=== PATIENT | male | born 1995 | race African-American/Black ===

== ENCOUNTER 2019-12-04 19:07 | Emergency (ER) | payer BC, OTHER ==
[~2019-12-04] VITALS: Ht 185 cm; Wt 82.0 kg
[2019-12-04] MEDS ORDERED: KETOROLAC 30 MG/ML VIAL ONE (19:18)
[2019-12-04] MEDS ORDERED: ONDANSETRON 4 MG/2 ML (SDV) Z0FRAN ONE (19:18)
[2019-12-04] MEDS ORDERED: LACTATED RINGERS 1,000 ML IV ONE (19:18)
[2019-12-04 19:23] LABS: BASOPHILS # (AUTO) 0.1 10^3/uL (0.0-0.1); BASOPHILS % (AUTO) 1 % (0-10); EOSINOPHILS # (AUTO) 0.3 10^3/uL (0.0-0.3); EOSINOPHILS % (AUTO) 4 % (0-10); HEMATOCRIT 52 % (40-54); HEMOGLOBIN 17.6 G/DL (13.3-17.7); LYMPHOCYTES # (AUTO) 2.1 X 10^3 (1.0-4.0); LYMPHOCYTES % (AUTO) 29 % (12-44); MEAN CORPUSCULAR HEMOGLOBIN 30 PG (25-34); MEAN CORPUSCULAR HGB CONC 34 G/DL (32-36); MEAN CORPUSCULAR VOLUME 88 FL (80-99); MEAN PLATELET VOLUME 11.3 FL (7.4-10.4); MONOCYTES # (AUTO) 0.7 X 10^3 (0.0-1.0); MONOCYTES % (AUTO) 10 % (0-12); NEUTROPHILS % (AUTO) 56 % (42-75); PLATELET COUNT 222 10^3/uL (130-400); RED CELL DISTRIBUTION WIDTH 13.5 % (10.0-14.5); WHITE BLOOD COUNT 7.1 10^3/uL (4.3-11.0)
--- NOTE | 2019-12-04 19:26 | ED GI ---
General Stated Complaint: DEHYRDRATED Source of Information: Patient Exam Limitations: No Limitations History of Present Illness Date Seen by Provider: Dec 04, 2019 Time Seen by Provider: 19:05 Initial Comments Patient presents ER by private conveyance with chief complaint of feeling dehydrated nausea vomiting and tired. 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 He has not had any diarrhea but he's vomited a few times today. No fevers or chills. No cough shortness of breath. No history of medical problems. No significant family medical history. No allergies. He denies tobacco alcohol or drugs. Allergies and Home Medications Allergies Coded Allergies: No Known Drug Allergies (Unverified , 12/04/19) Patient Home Medication List Home Medication List Reviewed: Yes Review of Systems Review of Systems Constitutional: No chills, No diaphoresis, No fever, No malaise EENTM: No Blurred Vision, No Double Vision Respiratory: Denies Cough, Denies Shortness of Air Cardiovascular: Denies Chest Pain, Denies Lightheadedness Gastrointestinal: Abdominal Pain (occasional abdominal cramps); Denies Constipated, Denies Diarrhea; Nausea, Poor Fluid Intake, Vomiting Genitourinary: Denies Burning, Denies Discharge Musculoskeletal: No back pain, No joint pain Skin: No pruritus, No rash All Other Systems Reviewed Negative Unless Noted: Yes Past Kajydok-Kdasnv-Zxpzgs Hx Patient Social History Alcohol Use: Denies Use Recreational Drug Use: No Smoking Status: Never a Smoker Recent Foreign Travel: No Contact w/Someone Who Travel: No Physical Exam Vital Signs Vital Signs - First Documented 12/04/19 19:24 Temp 36.3 Pulse 99 Resp 16 B/P (MAP) 124/94 (104) Pulse Ox 98 O2 Delivery Room Air Capillary Refill : Height/Weight/BMI Height: '" Weight: lbs. oz. kg; BMI Method: General Appearance: WD/WN, mild distress (having some intermittent abdominal cramps) HEENT: PERRL/EOMI, pharynx normal Neck: non-tender, full range of motion, supple, normal inspection Respiratory: lungs clear, normal breath sounds, no respiratory distress, no accessory muscle use Cardiovascular: normal peripheral pulses, regular rate, rhythm, no edema Gastrointestinal: normal bowel sounds, non tender, soft Neurologic/Psychiatric: alert, normal mood/affect, oriented x 3 Skin: normal color, warm/dry Progress/Results/Core Measures Results/Orders Lab Results Laboratory Tests Test 12/04/19 19:17 Range/Units White Blood Count 7.1 4.3-11.0 10^3/uL Red Blood Count 5.86 H 4.35-5.85 10^6/uL Hemoglobin 17.6 13.3-17.7 G/DL Hematocrit 52 40-54 % Mean Corpuscular Volume 88 80-99 FL Mean Corpuscular Hemoglobin 30 25-34 PG Mean Corpuscular Hemoglobin Concent 34 32-36 G/DL Red Cell Distribution Width 13.5 10.0-14.5 % Platelet Count 222 130-400 10^3/uL Mean Platelet Volume 11.3 H 7.4-10.4 FL Neutrophils (%) (Auto) 56 42-75 % Lymphocytes (%) (Auto) 29 12-44 % Monocytes (%) (Auto) 10 0-12 % Eosinophils (%) (Auto) 4 0-10 % Basophils (%) (Auto) 1 0-10 % Neutrophils # (Auto) 4.0 1.8-7.8 X 10^3 Lymphocytes # (Auto) 2.1 1.0-4.0 X 10^3 Monocytes # (Auto) 0.7 0.0-1.0 X 10^3 Eosinophils # (Auto) 0.3 0.0-0.3 10^3/uL Basophils # (Auto) 0.1 0.0-0.1 10^3/uL Sodium Level 140 135-145 MMOL/L Potassium Level 3.7 3.6-5.0 MMOL/L Chloride Level 93 L 98-107 MMOL/L Carbon Dioxide Level 26 21-32 MMOL/L Anion Gap 21 H 5-14 MMOL/L Blood Urea Nitrogen 26 H 7-18 MG/DL Creatinine 2.94 H 0.60-1.30 MG/DL Estimat Glomerular Filtration Rate 32 BUN/Creatinine Ratio 9 Glucose Level 104 70-105 MG/DL Calcium Level 12.6 H 8.5-10.1 MG/DL Corrected Calcium 8.5-10.1 MG/DL Total Bilirubin 1.2 H 0.1-1.0 MG/DL Aspartate Amino Transf (AST/SGOT) 36 H 5-34 U/L Alanine Aminotransferase (ALT/SGPT) 27 0-55 U/L Alkaline Phosphatase 94 40-136 U/L Total Protein 11.0 H 6.4-8.2 GM/DL Albumin 6.2 H 3.2-4.5 GM/DL Lipase 34 8-78 U/L My Orders Orders - GIULIANA PASTOR Cbc With Automated Diff (12/04/19 19:19) Comprehensive Metabolic Panel (12/04/19 19:19) Lipase (12/04/19 19:19) Lactated Ringers (Lr 1000 Ml Iv Solution (12/04/19 19:30) Ketorolac Injection (Toradol Injection) (12/04/19 19:30) Ondansetron Injection (Zofran Injectio (12/04/19 19:30) Magnesium (12/04/19 19:26) Lactated Ringers (Lr 1000 Ml Iv Solution (12/04/19 20:00) Medications Given in ED Current Medications Medications Dose Ordered Sig/Homero Route Start Time Stop Time Status Last Admin Dose Admin Ketorolac Tromethamine 15 mg ONCE ONCE IVP 12/04/19 19:30 12/04/19 19:31 DC 12/04/19 19:30 15 MG Ondansetron HCl 4 mg ONCE ONCE IVP 12/04/19 19:30 12/04/19 19:31 DC 12/04/19 19:30 4 MG Vital Signs/I&O 12/04/19 19:24 Temp 36.3 Pulse 99 Resp 16 B/P (MAP) 124/94 (104) Pulse Ox 98 O2 Delivery Room Air Progress Progress Note #1: Time: 19:25 Progress Note Heat exhaustion with nausea and vomiting. Plan to give him a liter of lactated Ringer's check some labs including a magnesium. We'll give him some Zofran, Toradol for his pain 15 mg. Progress Note #2: Time: 19:53 Progress Note Patient is a mild acute kidney injury. Plan to give him a second liter fluids. He is tolerating by mouth fluids in his nausea is gone after the Zofran. 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 We'll give him some ondansetron. We'll give him return precautions. Patient's okay with this plan. Departure Impression Primary Impression: Heat exhaustion Qualified Codes: T67.5XXA - Heat exhaustion, unspecified, initial encounter Additional Impression: Acute renal injury due to hypovolemia Disposition: 01 HOME, SELF-CARE Condition: Improved Departure-Patient Inst. Decision time for Depature: 20:00 Referrals: NO,LOCAL PHYSICIAN (PCP/Family) Primary Care Physician Patient Instructions: Dehydration, Adult (DC), Acute Kidney Injury Add. Discharge Instructions: Continue to drink a lot of fluids over the next week. Sports drinks are recommended. Tylenol 650 mg every 6 hours as necessary for body aches. Avoid ibuprofen, naproxen, Aleve or other NSAIDs until cleared by your doctor. Plan to have a lab redraw by either your primary care doctor or urgent care in the next 2-4 weeks. 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 After that you need a day of light duty followed by return to full duty. Return to the ER if you're having worsening symptoms or cannot control your vomiting. Ondansetron one tablet under the tongue every 6 hours as necessary for nausea. Make sure you are eating some food even if you're not hungry in addition to drinking lots of fluids. 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 Restrictions: 12/07/19 may return to light duty. 12/08/19 may return to full duty. GIULIANA PASTOR Dec 04, 2019 19:26
[2019-12-04 19:30] LABS: ALBUMIN 6.2 GM/DL (3.2-4.5)
[2019-12-04] MEDS ORDERED: ONDANSETRON 4 MG/2 ML (SDV) Z0FRAN IVP ONE (19:30)
[2019-12-04] MEDS ORDERED: LACTATED RINGERS 1,000 ML IV SCH ×2 (19:30→20:00)
[2019-12-04] MEDS ORDERED: KETOROLAC 30 MG/ML VIAL IVP ONE (19:30)
[2019-12-04 19:31] LABS: CHLORIDE 93 MMOL/L (98-107); POTASSIUM 3.7 MMOL/L (3.6-5.0); SODIUM 140 MMOL/L (135-145)
[2019-12-04 19:32] LABS: CALCIUM 12.6 MG/DL (8.5-10.1)
[2019-12-04 19:33] LABS: GLUCOSE 104 MG/DL (70-105)
[2019-12-04 19:34] LABS: CARBON DIOXIDE 26 MMOL/L (21-32)
[2019-12-04 19:35] LABS: BILIRUBIN,TOTAL 1.2 MG/DL (0.1-1.0)
[2019-12-04 19:36] LABS: ALKALINE PHOSPHATASE 94 U/L (40-136)
[2019-12-04 19:37] LABS: CREATININE SERUM 2.94 MG/DL (0.60-1.30); GFR ESTIMATED 32
[2019-12-04 19:38] LABS: BUN/CREATININE RATIO 9
[2019-12-04 19:39] LABS: ALANINE AMINOTRANSFERASE 27 U/L (0-55)
[2019-12-04 19:40] LABS: LIPASE 34 U/L (8-78)
[2019-12-04] MEDS ORDERED: ONDA4TAB11 PO (19:56)
[2019-12-04 21:04] VITALS: BP 124/89
--- OUTSIDE RECORDS SUMMARY | 2019-12-04 22:14 | XMS REPORT | Continuity of Care Document ---
Author Organization Unknown Address Unknown Phone Unavailable Allergies Active Description Code Type Severity Reaction Onset Reported/Identified Relationship to Patient Clinical Status Yes No Known Drug Allergies [id number] Drug Allergy Unknown N/A 12/04/2019 Medications There is no data. Problems There is no data. Procedures There is no data. Results Test Result Range Complete blood count (CBC) with automate d white blood cell (WBC) differential - 12/04/19 19:17 Blood leukocytes automated count (number/volume) 7.1 10*3/uL 4.3-11.0 Blood erythrocytes automated count (number/volume) 5.86 10*6/uL 4.35-5.85 Venous blood hemoglobin measurement (mass/volume) 17.6 g/dL 13.3-17.7 Blood hematocrit (volume fraction) 52 % 40-54 Automated erythrocyte mean corpuscular volume 88 [ foz_us] 80-99 Automated erythrocyte mean corpuscular h emoglobin (mass per erythrocyte) 30 pg 25-34 Automated erythrocyte mean corpuscular h emoglobin concentration measurement (mass/volume) 34 g/dL 32-36 Automated erythrocyte distribution width ratio 13. 5 % 10.0- 14.5 Automated blood platelet count (count/volume) 222 10*3/uL 130-400 Automated blood platelet mean volume measurement 11.3 [foz_us] 7.4-10.4 Automated blood neutrophils/100 leukocytes 56 % 42-75 Automated blood lymphocytes/100 leukocytes 29 % 12-44 Blood monocytes/100 leukocytes 10 % 0-12 Automated blood eosinophils/100 leukocytes 4 % 0-10 Automated blood basophils/100 leukocytes 1 % 0-10 Blood neutrophils automated count (number/volume) 4.0 10*3 1.8-7.8 Blood lymphocytes automated count (number/volume) 2.1 10*3 1.0-4.0 Blood monocytes automated count (number/volume) 0. 7 10*3 0.0-1.0 Automated eosinophil count 0.3 10*3/uL 0 .0-0.3 Automated blood basophil count (count/volume) 0.1 10*3/uL 0.0-0.1 Comprehensive metabolic panel - 12/04/19 19:17 Serum or plasma sodium measurement (moles/volume) 140 mmol/L 135-145 Serum or plasma potassium measurement (moles/volume) 3.7 mmol/L 3.6-5.0 Serum or plasma chloride measurement (moles/volume) 93 mmol/L 98-107 Carbon dioxide 26 mmol/L 21-32 Serum or plasma anion gap determination (moles/volume) 21 mmol/L 5-14 Serum or plasma urea nitrogen measurement (mass/volume ) 26 mg/dL 7-18 Serum or plasma creatinine measurement (mass/volume) 2.94 mg/dL 0.60-1.30 Serum or plasma urea nitrogen/creatinine mass ratio 9 NRG Serum or plasma creatinine measurement w ith calculation of estimated glomerular filtration rate 32 NRG Serum or plasma glucose measurement (mass/volume) 104 mg/dL 70-105 Serum or plasma calcium measurement (mass/volume) 12.6 mg/dL 8.5-10.1 Serum or plasma total bilirubin measurement (mass/volu me) 1.2 mg/dL 0.1-1.0 Serum or plasma alkaline phosphatase rajan surement (enzymatic activity/volume) 94 U/L 40-136 Serum or plasma aspartate aminotransfera se measurement (enzymatic activity/volume) 36 U/L 5-34 Serum or plasma alanine aminotransferase measurement (enzymatic activity/volume) 27 U/L 0-55 Serum or plasma protein measurement (mass/volume) 11.0 g/dL 6.4-8.2 Serum or plasma albumin measurement (mass/volume) 6.2 g/dL 3.2-4.5 Lipase - 12/04/19 19:17 Lipase 34 U/L 8-78 Magnesium - 12/04/19 19:17 Magnesium 2.1 mg/dL 1.6-2.4 Encounters ACCT No. Visit Date/Time Discharge Status Pt. Type Provider Facility Loc./Unit Complaint [id number] 12/04/2019 19:10:00 020 21:10:00 DIS Emergency DARBY NORRIS, GIULIANA Vogel [facility] ER DEHYRDRATED
== END 2019-12-04 21:10 | disposition home or self-care (01) ==
LOC: ER 19:10
DX: T67.5XXA Heat exhaustion, unspecified, initial encounter (principal); N17.9 Acute kidney failure, unspecified; E86.1 Hypovolemia; X30.XXXA Exposure to excessive natural heat, initial encounter
CPT/HCPCS: 36415; 80053; 83690; 83735; 85025; 99281